=== PATIENT | female | born 1965 | race Caucasian/White ===

== ENCOUNTER 2023-09-10 09:48 | Outpatient (CLI) | payer OTHER, SELFPAY ==
[2023-09-10 12:09] LABS: SERUM TEARS COLLECTION SPECIMEN PROCESSED
== END 2023-09-10 23:59 | disposition home or self-care (01) ==
PROVIDERS: Referring Provider Ophthalmology; Visit Provider Ophthalmology
DX: H04.123 Dry eye syndrome of bilateral lacrimal glands (principal)
CPT/HCPCS: 36415